=== PATIENT | male | born 1990 | race Caucasian/White ===

== ENCOUNTER 2019-06-04 17:46 | Emergency (ER) | payer MEDICAID ==
[~2019-06-04] VITALS: Ht 167.6 cm; Wt 84.0 kg
[2019-06-04] MEDS ORDERED: AMOXICILLIN/POTASSIUM CLAVULANATE 875/125MG TAB PO ONE (21:00)
[2019-06-04] MEDS ORDERED: IBUPROFEN 600MG TABLET PO ONE (21:00)
[2019-06-04] MEDS ORDERED: TETANUS, DIPHTHERIA, PERTUSSIS VAC/PF 0.5ML (>7YR OLD) IM ONE (21:00)
[2019-06-04] MEDS ORDERED: LIDOCAINE 1%/EPI 1:100,000 10 ML VIAL IJ ONE (21:00)
[2019-06-04] MEDS ORDERED: BACITRACIN ZINC OINT UDPKT TOP ONE (21:00)
[2019-06-04] MEDS ORDERED: BACITRACIN 15GM TUBE TOP SCH (21:45)
[2019-06-04 23:02] VITALS: BP 110/71
== END 2019-06-04 23:03 | disposition home or self-care (01) ==
LOC: ER 17:46
DX: L03.114 Cellulitis of left upper limb (principal); S50.12XA Contusion of left forearm, initial encounter; W50.3XXA Accidental bite by another person, initial encounter; Y93.89 Activity, other specified; Y92.89 Other specified places as the place of occurrence of the external cause; Y99.8 Other external cause status
CPT/HCPCS: 10060; 90471; 90715; 99284; J3490; Z7610

== ENCOUNTER 2019-06-06 17:35 | Emergency (ER) | payer MEDICAID ==
[~2019-06-06] VITALS: Ht 170.2 cm; Wt 70.0 kg
[2019-06-06] MEDS ORDERED: ONDANSETRON 4MG ODT PO ONE (21:00)
[2019-06-06] MEDS ORDERED: HYDROCODONE/ACETAMINOPHEN 5/325MG TABLET PO ONE (21:00)
[2019-06-06 22:16] VITALS: BP 121/70
== END 2019-06-06 22:18 | disposition home or self-care (01) ==
LOC: ER 17:35
DX: Z48.00 Encounter for change or removal of nonsurgical wound dressing (principal); L03.114 Cellulitis of left upper limb
CPT/HCPCS: 99283; Q0162; A4565